=== PATIENT | female | born 1960 | race Caucasian/White ===

== ENCOUNTER 2021-10-26 15:05 | Outpatient (CLI) | payer OTHER, SELFPAY ==
--- NOTE | 2021-10-26 15:13 | MM_ITS ---
WS: [id number] Bilateral screening digital mammogram, 10/26/2021 Clinical Data: SCREENING Comparison: 03/14/2013, 08/19/2012, 02/16/2012, 02/06/2012, 02/01/2011, 12/10/2009. Findings: The breast parenchymal pattern shows labral glandular tissue. No spiculated masses or clustered calci fications are seen. There are no secondary signs of carcinoma. There are mole markers on the left shayna ast. There are lymph nodes in both axilla. MM/[place] [id number] Impression: 1. Negative bilateral mammogram unchanged. 2. Recommend annual screening mammograms. BIRADS: 1-Negative FOLLOW UP: 1 Year Follow-up The CAD mechanical and auto body car checker was used.
== END 2021-10-26 15:06 | disposition home or self-care (01) ==
PROVIDERS: PCP Nurse Practitioner Family; Visit Provider Nurse Practitioner Family
DX: Z12.31 Encounter for screening mammogram for malignant neoplasm of breast (principal)
CPT/HCPCS: 77067

== ENCOUNTER 2022-03-27 10:51 | Emergency (ER) | payer OTHER, SELFPAY ==
[2022-03-27 11:02] VITALS: BP 193/98; PULSE 75; RESP 18; TEMP 36.2; O2SAT 99; BMI 33.1
[2022-03-27 11:04] VITALS: BP 172/100; PULSE 51; RESP 18; TEMP 36.4; O2SAT 99
--- NOTE | 2022-03-27 11:30 | ED_ITS ---
HPI - General Adult General: Chief complaint: Headache Stated complaint: high BP Time Seen by Provider: 03/27/22 11:12 Source: patient Mode of arrival: ambulatory Limitations: no limitations History of Present Illness: Patient is a nice 62-year-old female who presents to the ED today with a complaint of elevated blood pressure readings. Patient has a known history of hypertension in which she treats with Losartan, Metoprolol, and Triamterene/HCTZ. Patient states she had a cardiology follow-up at the end of January and states her blood pressure had been controlled at that time and no changes were made to medications. She states following that appointment she came down with a GI bug and states since then her blood pressures have been elevated with systolic pressures in the 170s. Patient does not complain of any chest pain, shortness of breath, difficulty breathing. She does complain of a minor headache. Onset (ago): day(s) Severity: mild Relieving factors: none Exacerbating factors: none Associated symptoms: Reports headache(s); Deny chest pain, confusion, dyspnea, malaise, nausea, palpitations or vomiting Treatments prior to arrival: none Review of Systems Const: Denies: fever(s), chills, body aches, fatigue or malaise Eyes: Denies: change in vision or blurry vision Card: Denies: chest pain, palpitations, irregular heart rhythm, edema or swelling of feet/ankles Resp: Denies: dyspnea GI: Denies: abdominal pain, nausea, vomiting or diarrhea Musc: Denies: neck pain or back pain Neuro: Reports: headache(s); Denies: numbness in extremities, weakness in extremities, sensory changes, dizziness or confusion [facility] ED PFSH: Medical History HTN (hypertension) Obesity Family History Other Hypertension Social History Smoking and tobacco status: never smoked Alcohol intake: never Physical Exam Const: COMMON NORMALS: no acute distress, patient oriented x3, no limitations, alert and well nourished GENERAL APPEARANCE: cooperative ORIENTATION/CONSCIOUSNESS: Yes awake, Yes oriented to person, Yes oriented to place and Yes oriented to time Resp: COMMON NORMALS: normal respiratory effort and clear to auscultation grisel aterally AUSCULTATION: clear to auscultation bilaterally Cardio: COMMON NORMALS: regular rate and regular rhythm RATE: regular rate RHYTHM: regular rhythm Extremity: COMMON NORMALS: normal to inspection, no clubbing, cyanosis or edema, no calf tenderness and no pedal edema Neuro: CHRIS COMA SCALE: document GCS findings [place] coma scale eye opening: Spontaneous Chris coma scale verbal response: Orientated Chris coma scale motor response: Obey commands [place] coma scale total score: 15 COMMON NORMALS: patient oriented x3, moves all extremities, no focal motor deficits, no sensory deficits noted and gait normal SENSORIUM/ORIENTATION: Yes alert, Yes oriented to person, Yes oriented to place and Yes oriented to time Course Vital Signs: Vital signs: Vital Signs Temperature 97.7 F 03/27/22 12:35 Pulse Rate 58 L 03/27/22 12:35 Respiratory Rate 18 03/27/22 12:35 Blood Pressure 120/46 03/27/22 12:35 Pulse Oximetry 96 03/27/22 12:35 MDM - General Adult Medical Decision Making Patient's blood work here is normal. She feels better after IV fluids and small dose of IV blood pressure medication. Blood pressure normotensive during my re- assessment. Told patient she could take additional 1/2 tablet of her triamterene/HCTZ in the morning (she normally takes this medication in the evening) if blood pressures are still running high when she checks it in the morning. Patient has appointment with cardiology this Sunday for follow up/treatment. Return to ED precautions given. Lab Data : 03/27/22 11:15 03/27/22 11:15 Laboratory Results WBC 6.8 10^3/uL (4.0-10.0) 03/27/22 11:15 RBC 5.11 10^6/uL (4.1-5.3) 03/27/22 11:15 Hgb 14.8 g/dL (11.5-15.3) 03/27/22 11:15 Hct 43.6 % (37.0-47.0) 03/27/22 11:15 MCV 85.3 fl (81-99) 03/27/22 11:15 MCH 29.0 pg (28.0-34.0) 03/27/22 11:15 MCHC 33.9 g/dL (30.0-36.0) 03/27/22 11:15 RDW 12.5 % (12.1-15.1) 03/27/22 11:15 Plt Count 280 10^3/cmm (130-400) 03/27/22 11:15 MPV 9.8 fL (7.4-10.4) 03/27/22 11:15 Neut % (Auto) 65.2 % 03/27/22 11:15 Lymph % (Auto) 25.4 % 03/27/22 11:15 [place] % (Auto) 7.8 % 03/27/22 11:15 Eos % (Auto) 0.6 % 03/27/22 11:15 Baso % (Auto) 0.9 % 03/27/22 11:15 Neut # (Auto) 4.43 10^3/uL (1.8-7.7) 03/27/22 11:15 Lymph # (Auto) 1.7 10^3/uL (0.8-4.8) 03/27/22 11:15 [place] # (Auto) 0.5 10^3/uL (0.2-0.9) 03/27/22 11:15 Eos # (Auto) 0.0 10^3/uL (0.0-0.8) 03/27/22 11:15 Baso # (Auto) 0.1 10^3/uL (0.0-0.1) 03/27/22 11:15 Nucleated RBC % (auto) 0 % 03/27/22 11:15 Nucleated RBCs # 0.0 /100WBC 03/27/22 11:15 Sodium 139 mmol/L (136-145) 03/27/22 11:15 Potassium 3.6 mmol/L (3.5-5.1) 03/27/22 11:15 Chloride 99 mmol/L (98-107) 03/27/22 11:15 Carbon Dioxide 25 mmol/L (22-29) 03/27/22 11:15 Anion Gap 18.6 (5-19) 03/27/22 11:15 BUN 19 mg/dL (8-23) 03/27/22 11:15 Creatinine 0.9 mg/dL (0.5-0.9) 03/27/22 11:15 GFR Calculation 63.7 mL/min (90-130) L 03/27/22 11:15 Glucose 112 mg/dL (65-115) 03/27/22 11:15 Calculated Osmolality 291 mOsm/kg (285-295) 03/27/22 11:15 Calcium 9.1 mg/dL (8.5-10.5) 03/27/22 11:15 Total Bilirubin 0.4 mg/dL (0.15-1.2) 03/27/22 11:15 AST 23 U/L (0-32) 03/27/22 11:15 ALT 17 U/L (0-33) 03/27/22 11:15 Alkaline Phosphatase 81 IU/L (35-105) 03/27/22 11:15 Total Protein 7.7 g/dL (6.6-8.7) 03/27/22 11:15 Albumin 4.9 g/dL (3.5-5.2) 03/27/22 11:15 Globulin 2.8 g/dL (1.3-4.6) 03/27/22 11:15 Lipase 26 U/L (13-60) 03/27/22 11:15 Urine Color Colorless (Yellow) 03/27/22 11:35 Urine Appearance Clear (CLEAR) 03/27/22 11:35 Urine pH 5 (5-7) 03/27/22 11:35 Ur Specific [place] 1.005 (1.005-1.030) 03/27/22 11:35 Urine Protein Neg (Negative) 03/27/22 11:35 Urine Glucose (UA) Norm (Normal) 03/27/22 11:35 Urine Ketones Negative (Negative) 03/27/22 11:35 Urine Blood 2+ (Negative) H 03/27/22 11:35 Urine Nitrate Negative (Negative) 03/27/22 11:35 Urine Bilirubin Neg (Negative) 03/27/22 11:35 Urine Urobilinogen Norm mg/dL (Negative) 03/27/22 11:35 Ur Leukocyte Esterase Negative (Negative) 03/27/22 11:35 Urine RBC 0-4 /hpf (0-2) H 03/27/22 11:35 Urine WBC 0-4 /hpf (0-5) H 03/27/22 11:35 Ur Squamous Epith Cells 0-4 /hpf (0-5) H 03/27/22 11:35 Amorphous Sediment Not Reportable 03/27/22 11:35 Urine Bacteria Trace /hpf (NONE) 03/27/22 11:35 Discharge Plan Discharge Patient Disposition: Home Clinical Impression: HTN (hypertension) Condition: Stable Prescriptions: No Action losartan 100 mg tablet 100 mg PO DAILY Qty: 90 3RF metoprolol succinate 50 mg tablet extended release 24 hr 50 mg PO DAILY Qty: 90 3RF triamterene-hydrochlorothiazid 37.5-25 mg tablet 1 tab PO DAILY Qty: 90 3RF Discharge Orders: Discharge ED (Routine); Ordered 03/27/22 Ordered By: Binta Delgado Referrals: Ange Bueno [Primary Care Provider] - Coding Level of Care Code ED Cost Control Specialist for Edelmira Bentley
[2022-03-27 11:34] VITALS: BP 166/84; PULSE 61; RESP 18; O2SAT 99
[2022-03-27] MEDS: sodium chloride 0.9% 1,000 ML 999 ML IV (11:36)
[2022-03-27 11:37] LABS: Basophils # 0.1 10^3/uL (0.0-0.1); Basophils % 0.9 %; Eosinophils % 0.6 %; Hematocrit 43.6 % (37.0-47.0); Hemoglobin 14.8 g/dL (11.5-15.3); Lymphocytes # 1.7 10^3/uL (0.8-4.8); Lymphocytes % 25.4 %; Mean Corpuscular HGB Conc 33.9 g/dL (30.0-36.0); Mean Corpuscular Volume 85.3 fl (81-99); Mean Platelet Volume 9.8 fL (7.4-10.4); Monocytes # 0.5 10^3/uL (0.2-0.9); Monocytes % 7.8 %; Neutrophils # 4.43 10^3/uL (1.8-7.7); Neutrophils % 65.2 %; Nucleated Red Blood Cells % 0 %; Platelet Count 280 10^3/cmm (130-400); Red Blood Count 5.11 10^6/uL (4.1-5.3); Red Cell Distribution Width 12.5 % (12.1-15.1); White Blood Count 6.8 10^3/uL (4.0-10.0)
[2022-03-27] MEDS: enalaprilat 1.25 mg/mL Inj 0.625 MG IVP (11:37)
[2022-03-27 11:55] LABS: Slide Review Slide Review Perform
[2022-03-27 12:13] LABS: Alanine Aminotransferase 17 U/L (0-33); Albumin Level 4.9 g/dL (3.5-5.2); Alkaline Phosphatase 81 IU/L (35-105); Blood Urea Nitrogen 19 mg/dL (8-23); Calcium 9.1 mg/dL (8.5-10.5); Carbon Dioxide 25 mmol/L (22-29); Chloride 99 mmol/L (98-107); Globulin 2.8 g/dL (1.3-4.6); Glomerular Filtration Rate 63.7 mL/min (90-130); Glucose 112 mg/dL (65-115); Lipase 26 U/L (13-60); Osmolality Calculated 291 mOsm/kg (285-295); Sodium 139 mmol/L (136-145); Total Bilirubin 0.4 mg/dL (0.15-1.2); Total Protein 7.7 g/dL (6.6-8.7)
[2022-03-27 12:15] LABS: Add Urine Microscopic? YES; Bilirubin Urine Neg (Negative); Blood Urine 2+ (Negative); Glucose Urine UA Norm (Normal); Ketones Urine Negative (Negative); Leukocyte Esterase Urine Negative (Negative); Nitrate Urine Negative (Negative); Protein Urine Neg (Negative); Specific Gravity, Urine 1.005 (1.005-1.030); Urine Appearance Clear (CLEAR); Urine Color Colorless (Yellow); Urobilinogen Urine Norm (Negative); pH Urine 5 (5-7)
[2022-03-27 12:16] LABS: Add Urine Culture? No; Bacteria Urine TRACE /hpf; RBC Urine 0-4 /hpf (0-2); Squamous Epithelial Cell Urine 0-4 /hpf (0-5); WBC Urine 0-4 /hpf (0-5)
[2022-03-27 12:21] LABS: Anion Gap 18.6 (5-19); Aspartate Amino Transferase 23 U/L (0-32); Potassium 3.6 mmol/L (3.5-5.1)
[2022-03-27 12:22] VITALS: BP 116/60; PULSE 61; RESP 18; O2SAT 96
[2022-03-27 12:35] VITALS: BP 120/46; PULSE 58; RESP 18; TEMP 36.5; O2SAT 96
== END 2022-03-27 12:47 | disposition home or self-care (01) ==
PROVIDERS: Emergency Provider Physician Assistant; PCP Nurse Practitioner Family
DX: I10 Essential (primary) hypertension (principal)
CPT/HCPCS: 80053; 81001; 83690; 85025; 96374; 99284; J3490; J7030

== ENCOUNTER 2023-03-08 09:09 | Outpatient (CLI) | payer OTHER, SELFPAY ==
--- NOTE | 2023-03-08 09:28 | US_ITS ---
WS: [id number] PELVIC ULTRASOUND REASON FOR EXAM: POSTMENOPAUSAL BLEEDING COMPARISON: None available. ORDER DATE: 03/08/2023 9:39 AM TECHNIQUE: Grayscale and Doppler transabdominal and transvaginal pelvic ultrasound. FINDINGS: Uterus measures 10.5 cm x 5.2 cm x 4.6 cm, with heterogenous echotexture. The endometrial cavity is expanded measuring 2 cm in diameter containing echogenic debris which on some views is demonstrating a fluid fluid level possibly in the posterior fundic region. The uterine wall is poorly defined measu ring approximately 3 mm in width. There are many subcentimeter nonlayering nodular foci within the gabbie men.. Right ovary measures 1.9 cm x 1.8 cm x 2.1 cm, and is unremarkable Left ovary is not visualized. No abnormal vascularity is demonstrated on duplex imaging. There is no cul-de-sac fluid is US/US pelvis lmt w transvag IMPRESSION: Endometrial cavity dilatation containing what appears to be blood p roducts is consistent with the patient's clinical findings. Some additional ech ogenic foci could be clotted blood or could represent polypoid change within th e endometrial cavity focal adenomyomatosis would be less likely. Recommend OB/G YN consultation.
== END 2023-03-08 09:10 | disposition home or self-care (01) ==
LOC: RAD 09:15
PROVIDERS: PCP Nurse Practitioner Family; Visit Provider Nurse Practitioner Family
DX: N95.0 Postmenopausal bleeding (principal)
CPT/HCPCS: 76830; 76857

== ENCOUNTER 2023-04-05 09:43 | Day surgery (SDC) | payer OTHER, SELFPAY ==
[2023-04-04 13:51] VITALS: BMI 31.7
[2023-04-05] VITALS (11 sets, daily range): BP systolic 124–177; BP diastolic 70–97; PULSE 60–89; RESP 16–18; TEMP 36.1–36.8; O2SAT 95–100
--- NOTE | 2023-04-05 01:32 | W.PM.OPSFHP ---
Same Day Surgery H&P Indication for Procedure/HPI DATE OF PROCEDURE: April 05, 2023 CHIEF COMPLAINT/INDICATIONFOR SURGICAL PROCEDURE: 63 y.o. with postmenopausal bleeding PREOP DIAGNOSIS: postmenopausal bleeding PLANNED PROCEDURE: Operation Date: 04/05/23 15:35 Proposed Procedures p Hysteroscopy with Myosure, endometrial sampling 19201, possible endometrial polypectomy 06788,N95.0(Not Applicable) - Ketan Ac MD s Poylpectomy(Not Applicable) - Ketan Ac MD Medications/Allergies* Home Medications Medication Instructions Recorded Confirmed Type ascorbic acid (vitamin C) 500 mg mg PO 03/29/22 03/26/23 History capsule cholecalciferol (vitamin D3) 625 PO 03/29/22 03/26/23 History mcg (25,000 unit) capsule magnesium oxide 500 mg capsule 500 mg PO DAILY 03/29/22 04/04/23 History omega 3-aat-rqq-fish oil 60 mg-90 1 cap PO DAILY 03/29/22 04/04/23 History mg-500 mg capsule (Fish Oil) garlic 300 mg capsule 50 mg PO DAILY 03/26/23 04/04/23 History Allergies/Adverse Reactions Allergy/AdvReac Type Severity Reaction Status Date / Time clonidine Allergy Severe Unconscious Verified 03/26/23 09:11 Pertinent History/Comorbid Conditions* Medical History (Updated 03/28/23 @ 01:14 by Ketan Ac MD) HTN (hypertension) Obesity Family History (Updated 03/26/23 @ 09:14 by Karen Azul) Diabetes Grandmother Maternal Heart disease Hypertension Mother Sister Brother Thyroid disease Sister Daughter Denies family history of Colon cancer Ovarian cancer Breast cancer Uterine cancer Stroke Pertinent Exam Findings alert, oriented x 3, clear to auscultation bilaterally and regular rate & rhythm Recommendations Surgery/Procedure today Coding Level of Care Code Acute Code for Chg Fwd Diagnoses Time Spent (min) 15
--- NOTE | 2023-04-05 11:01 | W.PM.OPSUD ---
Surgery/Procedure H&P Update DATE OF PROCEDURE: April 05, 2023 DATE H&P PERFORMED: 03/26/23 PREOP DIAGNOSIS: abnormal uterine bleeding PLANNED PROCEDURE: Operation Date: 04/05/23 12:35 Proposed Procedures p Hysteroscopy with Myosure, endometrial sampling 51696, possible endometrial polypectomy 72136,N95.0(Not Applicable) - Ketan Ac MD s Poylpectomy(Not Applicable) - Ketan Ac MD
[2023-04-05] MEDS: sodium chloride 0.9% 1,000 ML 30 ML IV (11:13)
--- NOTE | 2023-04-05 12:33 | ANES.PREANE2 ---
Pre-Anesthetic Assessment Height/Weight: Height 1.63 m Weight 83.915 kg Temp Pulse Resp BP Pulse Ox O2 Del Method 98.3 F 66 16 177/97 100 Room Air 04/05/23 10:45 04/05/23 10:45 04/05/23 10:45 04/05/23 10:45 04/05/23 10:45 04/05/23 10:49 Preop Diagnosis: abnormal uterine bleeding Operation Date: 04/05/23 12:35 Proposed Procedures p Hysteroscopy with Myosure, endometrial sampling 30646, possible endometrial polypectomy 08580,N95.0(Not Applicable) - Ketan Ac MD s Poylpectomy(Not Applicable) - Ketan Ac MD Familial anesthetic complications: none Was Beta Adolfo taken within 24 hours: Yes Was Clonidine taken within 24 hours: N/A Last intake: Intake Last Liquid Date 04/04/23 Last Liquid Time 22:00 Last Solid Date 04/04/23 Last Solid Time 19:30 Social No alcohol and No tobacco Exam alert, oriented x 3, clear to auscultation bilaterally and regular rate & rhythm Airway Submandibular: within normal limits Cervical ROM: within normal limits Mallampati: Class II Dentition: full CV/HEM Hypertension Anesthetic Plan ASA status: 2 Anesthesia: General Medications/Allergies Home Medications Medication Instructions Recorded Confirmed Last Taken Type triamterene 37.5 1 tab PO DAILY #90 tabs 02/06/22 04/04/23 04/04/23 Rx mg-hydrochlorothiazide 25 mg tablet ascorbic acid (vitamin C) 500 mg mg PO 03/29/22 03/26/23 04/04/23 08:00 History capsule cholecalciferol (vitamin D3) 625 PO 03/29/22 03/26/23 04/04/23 History mcg (25,000 unit) capsule magnesium oxide 500 mg capsule 500 mg PO DAILY 03/29/22 04/04/23 04/04/23 History omega 5-saq-pzq-fish oil 60 mg-90 1 cap PO DAILY 03/29/22 04/05/23 04/02/23 History mg-500 mg capsule (Fish Oil) losartan 100 mg tablet 100 mg PO DAILY #90 tabs 07/04/22 04/04/23 04/04/23 19:00 Rx carvedilol 6.25 mg tablet See Rx Instructions .Route 03/23/23 04/04/23 04/05/23 07:00 Rx .COMPLEX #240 tabs garlic 300 mg capsule 50 mg PO DAILY 03/26/23 04/04/23 04/03/23 History Allergies Allergy/AdvReac Type Severity Reaction Status Date / Time clonidine Allergy Severe Unconscious Verified 03/26/23 09:11 Current Medications Generic Name Dose Route Start Last Admin Trade Name Freq PRN Reason Stop Dose Admin Sodium Chloride 1,000 mls @ 30 mls/hr 04/05/23 10:30 04/05/23 11:13 Sodium Chloride 0.9% IV 04/06/23 10:29 30 mls/hr .Q24H SIVAKUMAR Administration PFSH Anesthesia Medical History (Updated 03/28/23 @ 01:14 by Ketan Ac MD) HTN (hypertension) Obesity Family History (Updated 03/26/23 @ 09:14 by Karen Azul) Grandmother Diabetes Maternal Mother Hypertension Sister Hypertension Thyroid disease Brother Hypertension Daughter Thyroid disease Other Heart disease Denies family history of Colon cancer Ovarian cancer Breast cancer Uterine cancer Stroke Data Anesthesia Cardiac Studies: No Data to Display
--- NOTE | 2023-04-05 16:12 | ANE.PACU2 ---
Inpatient post-anesthesia follow up: Airway intact: Yes Vital signs: Temperature 97.6 F Pulse Rate 60 Respiratory Rate 16 Blood Pressure 148/90 Pulse Oximetry 98 Oxygen Delivery Me thod Room Air Oxygen Flow Rate 6 Fraction of Inspir ed Oxygen Hydration adequate: Yes Nausea and vomiting: No Pain level: 2 Mental status: Baseline
--- NOTE | 2023-04-06 02:28 | PM.OP ---
Operative Report Date of procedure: April 06, 2023 Pre-op diagnosis: Preop Diagnosis abnormal uterine bleeding Post-op diagnosis: abnormal uterine bleeding endometrial polyp Post-op findings: 4 cm endometrial polyp Procedure done: hysteroscopy endometrial polypectomy and sampling with Myosure device Specimens removed/disposition: endometrial tissue Surgeon: Ketan Ac MD Estimated blood loss (mL): 0 Complications: none Brief History: patient with postmenopausal bleeding Procedure: Informed consent signed. Patient taken to the operating room. Anesthesia induced. Patient was placed in dorsolithotomy position, prepped and draped for hysteroscopy. A bivalve speculum was placed in the vagina. The anterior lip of the cervix was grasped with a sharp-toothed tenaculum. The cervix was noted to be stenotic, required serial dilation starting with lacrimal probes and then with Hegar dilators. A hysteroscope was placed into the endometrial cavity. There was a 4 cm endometrial polyp. Otherwise, there was a small amount of endometrial tissue. No other abnormalities was seen. The Myosure device was used to remove the endometrial polyp and to perform endometrial sampling. Tissue was sent to pathology. The endometrial cavity was seen to be intact. The hysteroscope was then removed. The sharp-toothed tenaculum was removed. There was no bleeding from the endometrial cavity or cervix. The patient was then placed supine and awakened and taken to the PACU. Postop condition: stable EBL: none Sponge and instruments counts were normal x 2 Complications: none
== END 2023-04-05 14:55 | disposition home or self-care (01) ==
PROVIDERS: PCP Nurse Practitioner Family; Visit Provider Obstetrics & Gynecology
PROC: 0UDB8ZZ Extraction of Endometrium, Via Natural or Artificial Opening Endoscopic (ICD-10-PCS; CPT 58558; principal; 2023-04-05 12:25)
PROC: (CPT 58558; 2023-04-05 12:25)
PROC: (CPT 58999; 2023-04-05 12:25)
DX: N95.0 Postmenopausal bleeding (principal); I10 Essential (primary) hypertension; N84.0 Polyp of corpus uteri
CPT/HCPCS: 58558; 88305; J1100; J1200; J2405; J2704; J3010; J3490; J7030

== ENCOUNTER 2023-05-25 14:12 | Outpatient (CLI) | payer OTHER, SELFPAY ==
--- NOTE | 2023-05-25 14:19 | MM_ITS ---
WS: [id number] BILATERAL 3D TOMOSYNTHESIS DIGITAL SCREENING MAMMOGRAPHY WITH CAD CLINICAL INFORMATION: SCREENING HISTORY: Screening mammogram. No current complaints. COMPARISON: October 26, 2021 TECHNIQUE: Bilateral CC and MLO views. FINDINGS: Scattered fibroglandular densities bilaterally. No suspicious focal mass, asymmetry, calcifications, or architectural distortion. No evidence of malignancy. MM/[place] [id number] IMPRESSION: BI-RADS: 1-Negative FOLLOW UP: 1 Year Follow-up Recommend return to annual screening mammography.
== END 2023-05-25 14:13 | disposition home or self-care (01) ==
PROVIDERS: PCP Nurse Practitioner Family; Visit Provider Nurse Practitioner Family
DX: Z12.31 Encounter for screening mammogram for malignant neoplasm of breast (principal)
CPT/HCPCS: 77063; 77067

== ENCOUNTER 2024-07-09 09:18 | Outpatient (CLI) | payer OTHER, SELFPAY ==
--- NOTE | 2024-07-09 09:27 | MM_ITS ---
WS: [id number] SCREENING DIGITAL BREAST TOMOSYNTHESIS MAMMOGRAM WITH CAD HISTORY: SCREENING COMPARISON: 03/14/2013, 10/26/2022, 05/25/2023 Bilateral CC and MLO with tomosynthesis and synthetic mammography submitted. Computer aided detection analyzed. Breast composition: There are scattered areas of fibroglandular density. Focal asymmetry measures 8 x 6 mm in the lateral RIGHT breast at a middle depth. This is near the central nipple line on the late ral projection. This appears more prominent than on prior studies and should be evaluated. LEFT breas t is negative. MM/[place] [id number] IMPRESSION: BI-RADS: 0-Incomplete: Need additional imaging evaluation FOLLOW UP: Need Additional Imaging RIGHT breast: Spot compression views (CC and MLO). True ML. Ultrasound to follo w if abnormality persists.
== END 2024-07-09 09:19 | disposition home or self-care (01) ==
LOC: RAD 09:18
PROVIDERS: PCP Nurse Practitioner Family; Visit Provider Nurse Practitioner Family
DX: Z12.31 Encounter for screening mammogram for malignant neoplasm of breast (principal); R92.323 Mammographic fibroglandular density, bilateral breasts
CPT/HCPCS: 77063; 77067

== ENCOUNTER 2024-09-16 10:18 | Outpatient (CLI) | payer OTHER, SELFPAY ==
--- NOTE | 2024-09-16 10:30 | MM_ITS ---
WS: [id number] ADDITIONAL VIEWS RIGHT MAMMOGRAM WITH DIGITAL BREAST TOMOSYNTHESIS. RIGHT BREAST ULTRASOUND HISTORY: R92.8 - Other abnormal and inconclusive findings on diagn... COMPARISON: 07/09/2024, 05/25/2023, 10/26/2021 RIGHT MAMMOGRAM: Spot compression views and true ML with digital breast tomosynthesis and SM. The asymmetry persists but is seen only on the CC projection in the lateral to inferior breast. Asymm etry is very ill-defined and difficult to measure. Area measures approximately 10 x 8 mm. Ultrasound will be performed in this region. No corresponding finding on the lateral projection. RIGHT BREAST ULTRASOUND 2-D and color Doppler imaging submitted. RIGHT breast 8:00, 2 cm from the nipple are 2 adjacent cysts with the entire cluster measuring 7 x 5 mm. This does correspond to an size and location to the mammographic abnormality. There is no shadowi ng or increased vascularity. MM/MM diag RT tomosynthesis [id number] IMPRESSION: BI-RADS: 2- Benign FOLLOW UP: 1 Year Follow-up
--- NOTE | 2024-09-16 11:00 | US_ITS ---
WS: [id number] ADDITIONAL VIEWS RIGHT MAMMOGRAM WITH DIGITAL BREAST TOMOSYNTHESIS. RIGHT BREAST ULTRASOUND HISTORY: R92.8 - Other abnormal and inconclusive findings on diagn... COMPARISON: 07/09/2024, 05/25/2023, 10/26/2021 RIGHT MAMMOGRAM: Spot compression views and true ML with digital breast tomosynthesis and SM. The asymmetry persists but is seen only on the CC projection in the lateral to inferior breast. Asymm etry is very ill-defined and difficult to measure. Area measures approximately 10 x 8 mm. Ultrasound will be performed in this region. No corresponding finding on the lateral projection. RIGHT BREAST ULTRASOUND 2-D and color Doppler imaging submitted. RIGHT breast 8:00, 2 cm from the nipple are 2 adjacent cysts with the entire cluster measuring 7 x 5 mm. This does correspond to an size and location to the mammographic abnormality. There is no shadowi ng or increased vascularity. US/US breast RT limited* [id number] IMPRESSION: BI-RADS: 2- Benign FOLLOW UP: 1 Year Follow-up
== END 2024-09-16 10:19 | disposition home or self-care (01) ==
LOC: RAD 10:19
PROVIDERS: Visit Provider Obstetrics & Gynecology
DX: R92.8 Other abnormal and inconclusive findings on diagnostic imaging of breast (principal); N60.11 Diffuse cystic mastopathy of right breast
CPT/HCPCS: 76642; 77061; G0279

== ENCOUNTER 2024-10-06 09:25 | Emergency (ER) | payer OTHER, SELFPAY ==
[2024-10-06 09:27] VITALS: BP 158/89; PULSE 86; RESP 16; TEMP 36.7; O2SAT 99; BMI 33.5
--- NOTE | 2024-10-06 09:28 | XRR_ITS ---
PROCEDURE INFORMATION: Exam: XR Chest Exam date and time: 10/06/2024 9:42 AM Age: 64 years old Clinical indication: Cough and dyspnea; Additional info: Dyspnea/cough TECHNIQUE: Imaging protocol: Radiologic exam of the chest. Views: 1 view. COMPARISON: No relevant prior studies available. FINDINGS: Lungs: Unremarkable. No consolidation. Pleural spaces: Unremarkable. No pleural effusion. No pneumothorax. Heart/Mediastinum: Unremarkable. No cardiomegaly. Bones/joints: Degenerative changes are noted. XR/XR chest 1V portable [id number] IMPRESSION: No acute findings.
--- NOTE | 2024-10-06 09:29 | CT_ITS ---
WS: [id number] CT HEAD NONCONTRAST HISTORY: syncope collapse TECHNIQUE: Contiguous axial imaging performed through the brain. Bone and soft tissue windows. Sagitt al and coronal reformats reviewed. All CT scans at [facility] use at least one of these dose optimization techniques: automated exposure control; mA and/or kV adjustment per patient size (includ es targeted exams where dose is matched to clinical indication); or iterative reconstruction. DLP: 1203.86 mGy.cm COMPARISON: 07/01/2016 No acute intracranial hemorrhage, midline shift or mass effect. Mild atrophy and mild small vessel disease. No prior or acute infarct. Ventricles: Normal size with no hydrocephalus. No inferior displacement of the cerebellar tonsils. Paranasal sinuses: As visualized are clear. Mastoid air cells: Well pneumatized. Calvarium and scalp: Skull is intact with no soft tissue edema or swelling. CT/CT head wo con* [id number] IMPRESSION: 1. No acute intracranial hemorrhage or edema. 2. Mild atrophy and mild small vessel disease. No interval change.
--- NOTE | 2024-10-06 09:39 | ED_ITS ---
HPI - Nausea/Vomiting/Diarrhea 2 General: Chief complaint: Nausea/Vomiting/Diarrhea Stated complaint: syncopal episodes Time Seen by Provider: 10/06/24 09:28 History of Present Illness: 64-year-old female presents emergency ro om 64-year-old female presents emergency room via EMS. On 2:00's morning she began having episodes of diarrhea. She has had about 4-5 episodes of loose to watery stools overnight no hematochezia melena hematemesis or coffee-ground emesis. She also had a couple episodes of vomiting and had 2 episodes of syncope. Patient denies any chest pain. Not having any headache. She has no history of previous CVA or coronary artery disease. There has been other family members who have been in contact with her that have also had GI illnesses. She did not strike her head or hurt anything when she passed out evidently she was sitting in a couch. She had not had any hematemesis or coffee-ground emesis episodes of vomiting or bilious. No recent antibiotic prescription she is not on any anticoagulants she does not have any chest pain at this time Associated nausea: Yes Associated symtoms: Reports nausea; Denies chest pain or dysuria Related Data Home Medications Medication Instructions Recorded Confirmed ascorbic acid (vitamin C) 500 mg 500 mg PO DAILY 03/29/22 10/06/24 capsule cholecalciferol (vitamin D3) 625 1 unit PO DAILY 03/29/22 10/06/24 mcg (25,000 unit) capsule magnesium oxide 500 mg capsule 500 mg PO DAILY 03/29/22 10/06/24 omega 6-tyd-qzq-fish oil 60 mg-90 1 cap PO DAILY 03/29/22 10/06/24 mg-500 mg capsule (Fish Oil) garlic 300 mg capsule 50 mg PO DAILY 03/26/23 10/06/24 Vitamin B Complex 100 mg PO DAILY 07/25/23 10/06/24 coenzyme Q10 100 mg tablet 100 mg PO DAILY 07/25/23 10/06/24 latanoprost 0.005 % eye drops 1 drp ophthalmic (eye) QPM 10/06/24 10/06/24 Previous Rx's Medication Instructions Recorded carvedilol 6.25 mg tablet See Rx Instructions .Route 12/04/23 .COMPLEX #240 tabs triamterene 37.5 1 tab PO DAILY #90 tabs 04/30/24 mg-hydrochlorothiazide 25 mg tablet losartan 100 mg tablet 100 mg PO DAILY #90 tabs 06/30/24 ondansetron HCl 4 mg tablet 4 mg PO Q6H PRN nausea and 10/06/24 vomiting #20 tabs Allergies Allergy/AdvReac Type Severity Reaction Status Date / Time clonidine Allergy Severe Unconscious Verified 10/06/24 09:35 Review of Systems 2 Const: Denies: fever(s) or chills Card: Denies: chest pain Resp: Denies: dyspnea GI: Reports: abdominal pain, nausea, vomiting, diarrhea and GI cramping : Denies: dysuria, urinary frequency or urinary urgency Musc: Denies: neck pain or back pain Skin/Breast: Denies: rash PFSH ED 2 PFSH: Medical History Obesity HTN (hypertension) Surgical History History of hysteroscopy Family History Grandmother Diabetes Maternal Mother Hypertension Sister Hypertension Thyroid disease Brother Hypertension Daughter Thyroid disease Other Heart disease Denies family history of Colon cancer Ovarian cancer Breast cancer Uterine cancer Stroke Social History Smoking and tobacco/nicotine status: never used tobacco/nicotine Physical Exam 2 Const: COMMON NORMALS: no acute distress GENERAL APPEARANCE: cooperative and comfortable ORIENTATION/CONSCIOUSNESS: Yes awake, Yes oriented to person, Yes oriented to place and Yes oriented to time HENMT: COMMON NORMALS: normocephalic, atraumatic and hearing grossly normal bilaterally HEAD & SCALP: normocephalic and atraumatic Resp: COMMON NORMALS: normal respiratory effort, No retractions, No use of accessory muscles and clear to auscultation bilaterally AUSCULTATION: clear to auscultation bilaterally Cardio: COMMON NORMALS: regular rate, regular rhythm and No murmurs present (Cardio) RATE: regular rate RHYTHM: regular rhythm GI: COMMON NORMALS: Soft to palpation and No hepatosplenomegaly present A USCULTATION: Yes normoactive bowel sounds PALPATION: Yes Soft to palpation, No Tenderness to palpation present (GI), No Guarding due to palpation present (GI) and Yes No hepatosplenomegaly present Extremity: COMMON NORMALS: normal to inspection, capillary refill normal, no clubbing, cyanosis or edema, no calf tenderness and no pedal edema Neuro: SENSORIUM/ORIENTATION: Yes oriented to person, Yes oriented to place and Yes oriented to time Skin: COMMON NORMALS: no rashes or lesions noted GENERAL SKIN EXAM: no rashes or lesions noted Course 2 Vital Signs: Vital signs: Vital Signs Temperature 98.0 F 10/06/24 09:27 Pulse Rate 87 10/06/24 13:25 Respiratory Rate 16 10/06/24 09:53 Blood Pressure 147/62 10/06/24 13:25 Pulse Oximetry 96 10/06/24 13:25 Oxygen Delivery Me thod Room Air 10/06/24 13:24 MDM - Nausea/Vomiting/Diarrhea Medical Decision Making Vasovagal episode due to her vomiting. She has had this in the past. Cardiac evaluation is negative she has no further symptoms since arriving here will discharge her home with Zofran to use as needed clear liquid diet follow-up as needed, return if she has further problems. Medical Records I reviewed the patient's medical records. Lab Data I reviewed the patient's lab results. 10/06/24 10:06 10/06/24 10:06 Radiology Impressions Chest X-Ray 10/06/24 09:28 IMPRESSION: No acute findings. Head CT 10/06/24 09:29 IMPRESSION: 1. No acute intracranial hemorrhage or edema. 2. Mild atrophy and mild small vessel disease. No interval change. Laboratory Results WBC 13.72 10^3/uL (3.29-11.43) H 10/06/24 10:06 RBC 5.42 10^6/uL (3.85-5.65) 10/06/24 10:06 Hgb 15.40 g/dL (11.27-16.99) 10/06/24 10:06 Hct 46.4 % (36-47) 10/06/24 10:06 MCV 85.6 fl (85-98) 10/06/24 10:06 MCH 28.4 pg (27-33) 10/06/24 10:06 MCHC 33.2 g/dL (30-55) 10/06/24 10:06 RDW 13.0 % (12.1-15.1) 10/06/24 10:06 Plt Count 274 10^3/cmm (157-399) 10/06/24 10:06 MPV 9.7 fL (7.4-10.4) 10/06/24 10:06 Neut % (Auto) 94.1 % 10/06/24 10:06 Lymph % (Auto) 2.2 % 10/06/24 10:06 [place] % (Auto) 2.9 % 10/06/24 10:06 Eos % (Auto) 0.1 % 10/06/24 10:06 Baso % (Auto) 0.4 % 10/06/24 10:06 Neut # (Auto) 12.91 10^3/uL (1.8-7.7) H 10/06/24 10:06 Lymph # (Auto) 0.3 10^3/uL (0.8-4.8) L 10/06/24 10:06 [place] # (Auto) 0.4 10^3/uL (0.2-0.9) 10/06/24 10:06 Eos # (Auto) 0.0 10^3/uL (0.0-0.8) 10/06/24 10:06 Baso # (Auto) 0.1 10^3/uL (0.0-0.1) 10/06/24 10:06 Nucleated RBC % (auto) 0 % 10/06/24 10:06 Nucleated RBCs # 0.0 /100WBC 10/06/24 10:06 Sodium 139 mmol/L (136-145) 10/06/24 10:06 Potassium 3.9 mmol/L (3.5-5.1) 10/06/24 10:06 Chloride 99 mmol/L (98-107) 10/06/24 10:06 Carbon Dioxide 25 mmol/L (22-29) 10/06/24 10:06 Anion Gap 18.9 (5-19) 10/06/24 10:06 BUN 21 mg/dL (8-23) 10/06/24 10:06 Creatinine 0.8 mg/dL (0.5-0.9) 10/06/24 10:06 GFR Calculation 72.4 mL/min (90-130) L 10/06/24 10:06 Glucose 138 mg/dL (65-115) H 10/06/24 10:06 Calculated Osmolality 293 mOsm/kg (285-295) 10/06/24 10:06 Calcium 9.5 mg/dL (8.5-10.5) 10/06/24 10:06 Total Bilirubin 0.4 mg/dL (0.15-1.2) 10/06/24 10:06 AST 26 U/L (0-32) 10/06/24 10:06 ALT 22 U/L (0-33) 10/06/24 10:06 Alkaline Phosphatase 79 U/L (35-105) 10/06/24 10:06 Troponin T Baseline 10 ng/L (0-10) 10/06/24 10:06 Troponin T 120 Minute 10.43 ng/L (0-10) H 10/06/24 12:26 Delta Troponin T 0.43 ABS# (0-10) 10/06/24 12:26 Total Protein 7.7 g/dL (6.6-8.7) 10/06/24 10:06 Albumin 4.7 g/dL (3.5-5.2) 10/06/24 10:06 Globulin 3.0 g/dL (1.3-4.6) 10/06/24 10:06 Urine Color Dark yellow (Yellow) A 10/06/24 11:19 Urine Appearance Clear (CLEAR) 10/06/24 11:19 Urine pH 6.0 (5-7) 10/06/24 11:19 Ur Specific [place] 1.021 (1.005-1.030) 10/06/24 11:19 Urine Protein 2+ (Negative) A 10/06/24 11:19 Urine Glucose (UA) Negative (Normal) 10/06/24 11:19 Urine Ketones Negative (Negative) 10/06/24 11:19 Urine Blood 1+ (Negative) A 10/06/24 11:19 Urine Nitrate Negative (Negative) 10/06/24 11:19 Urine Bilirubin Negative (Negative) 10/06/24 11:19 Urine Urobilinogen 0.2 mg/dL (Negative) 10/06/24 11:19 Ur Leukocyte Esterase Negative (Negative) 10/06/24 11:19 Urine RBC 11-20 /hpf (0-2) H 10/06/24 11:19 Urine WBC 0-5 /hpf (0-5) 10/06/24 11:19 Ur Squamous Epith Cells 0-5 /hpf (0-5) 10/06/24 11:19 Amorphous Sediment Not Reportable 10/06/24 11:19 Urine Bacteria Trace /hpf (NONE) 10/06/24 11:19 Hyaline Casts 2.05 /lpf 10/06/24 11:19 All radiology interpretation(s) finalized by discharge Discharge Plan Discharge Patient Disposition: Home Clinical Impression: Syncope, vasovagal, Nausea and vomiting Condition: Stable Prescriptions: New ondansetron HCl 4 mg tablet 4 mg PO Q6H PRN (Reason: nausea and vomiting) Qty: 20 0RF No Action omega 3-amf-xod-fish oil [Fish Oil] 60-90-500 mg capsule 1 cap PO DAILY ascorbic acid (vitamin C) 500 mg capsule 500 mg PO DAILY cholecalciferol (vitamin D3) 625 mcg (25,000 unit) capsule 1 unit PO DAILY magnesium oxide 500 mg capsule 500 mg PO DAILY garlic 300 mg capsule 50 mg PO DAILY coenzyme Q10 100 mg tablet 100 mg PO DAILY Vitamin B Complex 100 mg PO DAILY carvedilol 6.25 mg tablet See Rx Instructions .ROUTE .COMPLEX Qty: 240 3RF Dose Instruction: TAKE 1 TABLET BY MOUTH EACH MORNING AND 2 TABLETS IN THE EVENING Rx Instructions: TAKE 1 TABLET BY MOUTH EACH MORNING AND 2 TABLETS IN THE EVENING triamterene-hydrochlorothiazid 37.5-25 mg tablet 1 tab PO DAILY Qty: 90 3RF losartan 100 mg tablet 100 mg PO DAILY Qty: 90 3RF latanoprost 0.005 % drops 1 drp ophthalmic (eye) QPM Discharge Orders: Discharge ED (Routine); Ordered 10/06/24 Ordered By: Matteo Batista Patient Instructions: Opioid Safety, Pain Management Activity Restrictions/Additional Instructions: Thank you for choosing [facility] for your healthcare needs today. It is very important that you follow up as instructed or that you return to the Emergency Department should you have concerns or if your condition changes or worsens in any way. You are seen in the emergency room for an episode of syncope. This is likely triggered by vasovagal reflex when you vomited. Your heart evaluation in the emergency room was normal. Do recommend that you use nausea vomiting medications prescribed today as needed to prevent these episodes in the future. Coding Level of Care Code ED Operation Agent for Edelmira Bentley
[2024-10-06 09:53] VITALS: BP 158/89; PULSE 87; RESP 16; O2SAT 100
--- NOTE | 2024-10-06 09:59 | ECG_ITS ---
[facility] Date: 2024-10-06 Pat Name: Annette Ireland Department: Room: Gender: Female [employer]iler [employer]s: : 1960 Requested By: Matteo Callaway Order Number: [id number] Carlyle MD: María Evans M.D. Measurements Intervals [place] Rate: 86 P: 39 NH: 168 QRS: 17 QRSD: 95 T: 2 QT: 367 QTc: 439 Interpretive Statements SINUS RHYTHM MINIMAL ST DEPRESSION [0.025+ mV ST DEPRESSION] Compared to ECG 06/30/2016 23:44:40 ST (T wave) deviation now present Electronically Signed On 10-09-2024 21:29:42 OVERCASTER by María Evans M.D. [email or web address]
[2024-10-06 10:23] LABS: Basophils # 0.1 10^3/uL (0.0-0.1); Basophils % 0.4 %; Eosinophils % 0.1 %; Hematocrit 46.4 % (36-47); Lymphocytes # 0.3 10^3/uL (0.8-4.8); Lymphocytes % 2.2 %; Mean Corpuscular HGB Conc 33.2 g/dL (30-55); Mean Corpuscular Hemoglobin 28.4 pg (27-33); Mean Corpuscular Volume 85.6 fl (85-98); Mean Platelet Volume 9.7 fL (7.4-10.4); Monocytes # 0.4 10^3/uL (0.2-0.9); Monocytes % 2.9 %; Neutrophils # 12.91 10^3/uL (1.8-7.7); Neutrophils % 94.1 %; Nucleated Red Blood Cells % 0 %; Platelet Count 274 10^3/cmm (157-399); Red Blood Count 5.42 10^6/uL (3.85-5.65); White Blood Count 13.72 10^3/uL (3.29-11.43)
[2024-10-06 10:38] LABS: Troponin(5th) Baseline 10 ng/L (0-10)
[2024-10-06 10:47] LABS: Alanine Aminotransferase 22 U/L (0-33); Albumin Level 4.7 g/dL (3.5-5.2); Alkaline Phosphatase 79 U/L (35-105); Anion Gap 18.9 (5-19); Aspartate Amino Transferase 26 U/L (0-32); Blood Urea Nitrogen 21 mg/dL (8-23); Calcium 9.5 mg/dL (8.5-10.5); Carbon Dioxide 25 mmol/L (22-29); Chloride 99 mmol/L (98-107); Creatinine Clr Calc Pharmacy 77.4951; Glomerular Filtration Rate 72.4 mL/min (90-130); Glucose 138 mg/dL (65-115); Osmolality Calculated 293 mOsm/kg (285-295); Potassium 3.9 mmol/L (3.5-5.1); Sodium 139 mmol/L (136-145); Total Bilirubin 0.4 mg/dL (0.15-1.2); Total Protein 7.7 g/dL (6.6-8.7)
[2024-10-06] MEDS: metoclopramide 5 mg/mL SDV 2 mL 10 MG IVP (11:03)
[2024-10-06] MEDS: sodium chloride 0.9% 1,000 ML 999 ML IV (11:06)
[2024-10-06 11:21] VITALS: BP 147/87; PULSE 86; O2SAT 91
--- NOTE | 2024-10-06 11:26 | ECG_ITS ---
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 Measurements Intervals [place] Rate: 82 P: 47 IN: 165 QRS: 32 QRSD: 105 T: 10 QT: 384 QTc: 451 Interpretive Statements SINUS RHYTHM NONSPECIFIC ST & T-WAVE ABNORMALITY Compared to ECG 10/06/2024 09:59:29 T-wave abnormality now present ST (T wave) deviation no longer present Electronically Signed On 10-12-2024 21:00:03 WELFARE ADVISER by María Evans M.D. [email or web address]
[2024-10-06 11:39] LABS: Bilirubin Urine Negative (Negative); Blood Urine 1+ (Negative); Glucose Urine UA Negative (Normal); Ketones Urine Negative (Negative); Leukocyte Esterase Urine Negative (Negative); Nitrate Urine Negative (Negative); Protein Urine 2+ (Negative); Specific Gravity, Urine 1.021 (1.005-1.030); Urine Appearance Clear (CLEAR); Urine Color Dark Yellow (Yellow); Urobilinogen Urine 0.2 mg/dL (Negative)
[2024-10-06 11:48] LABS: Add Urine Microscopic? YES; Bacteria Urine Trace /hpf; Hyaline Casts Urine 2.05 /lpf; Squamous Epithelial Cell Urine 0-5 /hpf (0-5); WBC Urine 0-5 /hpf (0-5)
[2024-10-06 13:04] LABS: Troponin 5 2HR 10.43 ng/L (0-10); Troponin 5 2HR Delta 0.43 ABS# (0-10)
[2024-10-06 13:24] VITALS: BP 147/62; PULSE 87; O2SAT 96
[2024-10-06 13:25] VITALS: BP 147/62; PULSE 87; O2SAT 96
== END 2024-10-06 13:27 | disposition home or self-care (01) ==
PROVIDERS: Emergency Provider Family Medicine
DX: R55 Syncope and collapse (principal); R11.2 Nausea with vomiting, unspecified; I10 Essential (primary) hypertension
CPT/HCPCS: 36415; 70450; 71045; 80053; 81001; 84484; 85025; 93005; 96374; 99285; J2765; J7030

== ENCOUNTER → 2025-02-02 16:18 | Outpatient (BNVA) | payer OTHER, SELFPAY | PROVIDERS: Visit Provider Obstetrics & Gynecology | DX: Z01.419 Encounter for gynecological examination (general) (routine) without abnormal findings (principal) | CPT/HCPCS: 87624 ==

== ENCOUNTER → 2025-11-24 08:34 | Outpatient (BNVA) | payer OTHER, SELFPAY | PROVIDERS: PCP Family Medicine; Visit Provider Family Medicine | DX: I10 Essential (primary) hypertension (principal) | CPT/HCPCS: 80053; 80061; 84439; 84443; 85025 ==